=== PATIENT | male | born 1960 | race African-American/Black ===

== ENCOUNTER 2017-08-28 22:28 | Emergency (ER) | payer SELFPAY ==
[2017-08-28] MEDS ORDERED: Adacel (T-DAP) 0.5 ML VIAL ONE (23:18)
[2017-08-29] MEDS ORDERED: Bacitracin Zinc 1 Packet ONE (00:32)
== END 2017-08-29 00:35 | disposition home or self-care (01) ==
LOC: ERS 22:28
DX: S61.012A Laceration without foreign body of left thumb without damage to nail, initial encounter (principal); F17.210 Nicotine dependence, cigarettes, uncomplicated; W26.0XXA Contact with knife, initial encounter; Y93.G3 Activity, cooking and baking
CPT/HCPCS: 12001; 90471; 90715

== ENCOUNTER 2022-10-10 10:36 | Emergency (ER) | payer OTHER, SELFPAY ==
[2022-10-10 11:31] LABS: Hemoglobin 14.2 g/dL (14.0-18.0); Mean Corpuscular HGB CONC 32.1 g/dL (32.0-36.0); Mean Corpuscular Hemoglobin 31.3 pg (27.0-31.0); Mean Corpuscular Volume 97.6 fl (78.0-98.0); Mean Platelet Volume 7.4 fL (7.4-10.4); Platelet Count 215 10x3/uL (130-400); RBC Distribution Width 13.7 % (11.5-14.5); Red Blood Cell (RBC) Count 4.53 mill/uL (4.70-6.10); White Blood Cell (WBC) Count 8.2 10x3/uL (4.8-10.8)
[2022-10-10 11:56] LABS: ALT (SGPT) 38 U/L (8-55); AST (SGOT) 33 U/L (5-34); Alkaline Phosphatase 95 U/L (40-110); Anion Gap 12 mmol/L (10-20); BUN (Urea Nitrogen) 12 mg/dL (8.4-25.7); Bilirubin, Total 0.3 mg/dL (0.2-1.2); Calc. Creatinine Clearance 0 mL/min (70-130); Calcium 9.3 mg/dL (7.8-10.44); Carbon Dioxide 28 mmol/L (23-31); Chloride 100 mmol/L (98-107); Estimated GFR 70; Globulin 3.4 g/dL (2.4-3.5); Glucose 105 mg/dL (80-115); Potassium 5.4 mmol/L (3.5-5.1); Protein, Total 7.4 g/dL (5.8-8.1); Sodium 135 mmol/L (136-145)
[2022-10-10 11:57] LABS: Band 13 % (5-11); Eosinophils 1 % (0-10); Lymphocytes 24 % (21-51); MDiff Complete? YES; Monocytes 8 % (0-10); Neutrophil 50 % (42-75); RBC Morphology Normal; Reactive Lymphocytes 4 % (0-10)
== END 2022-10-10 12:29 ==
LOC: EEVIPCON 10:36 → ERS 10:36
DX: U07.1 COVID-19 (principal); R55 Syncope and collapse; F17.210 Nicotine dependence, cigarettes, uncomplicated
CPT/HCPCS: 36415; 71045; 80053; 84484; 85025; 93005

== ENCOUNTER 2024-11-26 16:57 | Emergency (ER) | payer SELFPAY ==
[2024-11-26] MEDS ORDERED: Ketorolac Tromethamine 30 MG (1 mL) VIAL ONE (19:10)
[2024-11-26] MEDS ORDERED: Acetaminophen 500 MG TAB ONE (19:10)
[2024-11-26] MEDS ORDERED: Benzonatate 100 MG CAP ONE (19:14)
== END 2024-11-26 20:23 | disposition home or self-care (01) ==
LOC: ERS 16:57
DX: J11.1 Influenza due to unidentified influenza virus with other respiratory manifestations (principal); F17.210 Nicotine dependence, cigarettes, uncomplicated
CPT/HCPCS: 87428; 96361; 96374; J1885